=== PATIENT | male | born 1945 | race Caucasian/White ===

== ENCOUNTER 2016-06-28 18:21 | Emergency (ER) | payer OTHER, MEDICARE ==
[2016-06-28 18:31] VITALS: RESP 16; TEMP 97.5
--- NOTE | 2016-06-28 18:35 | EDPHY ---
H & P Stated Complaint: laceration to L hand with saw - Personal History Current Tetanus/Diphtheria Vaccine: Unsure Current Tetanus Diphtheria and Acellular Pertussis (TDAP): Unsure Tetanus Vaccine Date: < 10 YEARS - Medical/Surgical History Hx Asthma: No Hx Chronic Respiratory Disease: No Hx Diabetes: Yes Hx Cardiac Disease: Yes Hx Renal Disease: No Hx Cirrhosis: No Hx Alcoholism: No Hx HIV/AIDS: No Hx Splenectomy or Spleen Trauma: No Other PMH: cabg [id number], sss & 12, stents 12, DM2, htn, hyperlipidemia, former smoker, pace maker, afib - Social History Smoking Status: Former smoker Time Seen by Provider: 06/28/16 18:34 Constitutional: Initial Vital Signs Temperature (C) 36.4 C 06/28/16 18:22 Heart Rate 71 06/28/16 18:22 Respiratory Rate 16 06/28/16 18:22 Blood Pressure 123/68 H 06/28/16 18:22 O2 Sat (%) 98 06/28/16 18:22 O2 Delivery Mode Room Air Allergies/Adverse Reactions: Penicillins Allergy (Unknown, Verified 11/02/09 09:37) Other-Enter Comments Home Medications: Medication Instructions Recorded Carvedilol [Coreg (*)] 6.25 mg PO BIDMEAL 06/11/14 Fluticasone Nasal [Flonase Nasal 1 sprays NASAL DAILY PRN 06/11/14 [place]] Venlafaxine Xr [Effexor Xr 75MG 75 mg PO DAILY 06/11/14 (*)] Clopidogrel Bisulfate [Plavix (*)] 75 mg PO HS #60 tab 06/13/14 Aspirin EC [Aspirin EC 81 mg (*)] 81 mg PO HS 05/01/15 Lisinopril [Zestril 2.5 mg (*)] 2.5 mg PO HS 05/01/15 Atorvastatin Calcium [Lipitor 80 80 mg PO HS 06/18/15 mg] Furosemide [Lasix 80 MG (*)] 80 mg PO DAILY 06/18/15 Magnesium Chloride [Slow-Mag] 71.5 mg PO DAILY 06/18/15 Spironolactone [Aldactone 25 MG 12.5 mg PO DAILY 06/18/15 (*)] Apixaban [Eliquis] 2.5 mg PO BID #60 tablet 06/19/15 Cephalexin [Keflex (RX)] 500 mg PO TID #20 cap 06/28/16 Medical Decision Making Procedures: Procedure: Laceration repair. Verbal consent was obtained from the patient. The 7 cm laceration on the palm of the left hand was anesthetized in the usual fashion. The wound was irrigated , draped and explored to its base with a gloved finger. There were no deep structures involved. No tendon injury was identified. The wound was repaired with 5 0 Prolene, 21 simple interrupted sutures. The wound repair was simple. The procedure was performed by myself. Procedure: Splint placement. A Velcro thumb spica splint was applied. After application of the splint I returned and re-examined the patient. The splint was adequately immobilizing the joint and distal to the splint the patient's circulation and sensation was intact. (Efraín Tejada) ED Course/Re-evaluation: CHIEF COMPLAINT: Hand laceration HISTORY OF PRESENT ILLNESS: The patient is an anticoagulated 71 y/o male arriving with his daughter complaining of a laceration to his left palm. He was sawing a piece of clean aluminium metal when the metal slipped and cut his left palm. He had immediate pain and bleeding following the injury, though the bleeding is controlled well with direct pressure and his pain is minor in severity. He denies other injuries. He does not endorse weakness or paresthesias in his hand or fingers. REVIEW OF SYSTEMS: A 10 point review of systems was performed and is negative with the exception of the elements mentioned in the history of present illness. PHYSICAL EXAM: General Appearance: Alert, well hydrated, appropriate, and non-toxic appearing. Cardiovascular: Intact left radial pulses. Good capillary refill in left hand and fingers. Musculoskeletal: Normal active ROM of all extremities, atraumatic. Neurological: Alert, appropriate, and interactive. Motor and sensation intact with good 2-point discrimination. Skin: No rashes, good turgor, no nodules on palpation. 7cm C-shaped laceration across thenar eminence along thenar crease of left palm with minor bleeding. No other visible trauma. PAST MEDICAL HISTORY: Unknown last tetanus vaccination. On Eliquis, Plavix, and aspirin for atrial fibrillation; CAD; CABG; cardiac stents. 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 DIAGNOSTICS/PROCEDURES/CRITICAL CARE TIME: Laceration repaired by RAJWINDER Tejada. DIFFERENTIAL DIAGNOSIS: The differential diagnosis for the patient's trauma included but was not limited to laceration, muscle and tendon injury, nerve trauma. MEDICAL DECISION MAKING: This is an anticoagulated 71 y/o male presenting with a large C-shaped laceration to his left palm after a piece of aluminum slipped and cut his hand. He remains neurovascularly intact surrounding and distal to the injury. His bleeding is adequately controlled with pressure. He has no other injuries. Plan for laceration repair, tetanus vaccination administration, and prophylactic Keflex. He agrees with treatment plan. (Paolo Navarro) - Data Points Medications Given: Discontinued Medications Cephalexin (Keflex 500 Mg Prepack#4) 1 btl TAKEHOME EDNOW ONE PRN Reason: Protocol Stop: 06/28/16 20:14 Last Admin: 06/28/16 21:10 Dose: 1 btl Cephalexin HCl (Keflex) 500 mg PO EDNOW ONE PRN Reason: Protocol Stop: 06/28/16 18:47 Last Admin: 06/28/16 19:23 Dose: 500 mg Diphtheria/Tetanus/Acell Pertussis (Boostrix) 0.5 ml IM .ONCE ONE Stop: 06/28/16 18:47 Last Admin: 06/28/16 19:24 Dose: 0.5 ml Departure - Departure Disposition: Home, Routine, Self-Care Clinical Impression: Laceration of hand, left Qualifiers: Encounter type: initial encounter Qualified Code(s): S61.412A - Laceration without foreign body of left hand, initial encounter Condition: Good Instructions: Cephalexin (By mouth), Laceration (ED), Finger Laceration (ED) Additional Instructions: 1. Take Keflex as prescribed. Be sure to complete the entire prescription. 2. Return in 10 days for suture removal. 3. Return earlier to the ED if you experience severe pain, weakness or numbness in your fingers, a dramatic increase in redness or swelling, or if you develop pus or fever. Referrals: Annette Byers MD [Medical Doctor] - As per Instructions Prescriptions: Cephalexin [Keflex (RX)] 500 mg PO TID #20 cap Report Scribed for: Paolo Navarro Report Scribed by: Francoise Tyson Date of Report: 06/28/16 Time of Report: 18:50
[2016-06-28] MEDS ORDERED: CEPHALEXIN 500 MG CAP PO ONE (18:46)
[2016-06-28] MEDS ORDERED: TDAP ADULT 0.5 ML INJ (BOOSTRIX) IM ONE (18:46)
[2016-06-28] MEDS ORDERED: CEPHALEXIN 500MG PREPACK#4 BTL TAKEHOME ONE (20:13)
[2016-06-28 21:24] VITALS: BP 113/67; PULSE 77; O2SAT 96
== END 2016-06-28 21:21 | disposition home or self-care (01) ==
PROC: 0HQGXZZ Repair Left Hand Skin, External Approach (ICD-10-PCS; principal; 2016-06-28)
DX: S61.412A Laceration without foreign body of left hand, initial encounter (principal); E11.9 Type 2 diabetes mellitus without complications; I10 Essential (primary) hypertension; I25.810 Atherosclerosis of coronary artery bypass graft(s) without angina pectoris; Z95.5 Presence of coronary angioplasty implant and graft; Z79.82 Long term (current) use of aspirin; Z79.01 Long term (current) use of anticoagulants; Z23 Encounter for immunization; W45.8XXA Other foreign body or object entering through skin, initial encounter; Y99.8 Other external cause status; Y93.89 Activity, other specified
CPT/HCPCS: 12002; 90471; 90715; 99283; L3807

== ENCOUNTER 2016-07-02 15:26 | Observation (INO) | payer OTHER, MEDICARE ==
--- NOTE | 2016-07-02 16:07 | EDPHY ---
H & P Time Seen by Provider: 07/02/16 15:42 HPI/ROS: CHIEF COMPLAINT: Left hand wound, subsequent visit HISTORY OF PRESENT ILLNESS: This patient is a 71 year old male who presents to the Emergency Department for a subsequent check of left hand wound. He was seen in the ED on 06/28 for a laceration to his left hand obtained when using a table saw in attempt to separate two sheets of metal, lacerating the palm and requiring 21 sutures for repair. He was placed on Keflex which he has been compliant with. Today, he reports increased swelling and redness to the wound site over the past two days. He notes mild tenderness (severity 1/10) to the site of the injury. He also complains of increased lethargy since 700 today. Denies fever, chills, or additional complaints. He has an extensive cardiac history and take Eliquis and Plavix. Medical history also includes type 2 diabetes (Metformin). Tetanus up to date. REVIEW OF SYSTEMS: Constitutional: +lethargy, no fever, no chills Eyes: No visual changes ENT: No sore throat Respiratory: No cough, no shortness of breath Cardiac: No chest pain Gastrointestinal: No nausea, no vomiting, no abdominal pain Genitourinary: No hematuria, no dysuria Musculoskeletal: +left hand laceration, +left hand swelling, no leg pain or swelling Skin: No rash Neurological: No headache, no numbness, no weakness Psychiatric: No depression Past Medical/Surgical History: Coronary artery disease with stenting and CABG, atrial fibrillation, pacemaker, cardiac ablation (Plavix, Eliquis). Followed by Dr. Elliott, cardiology. Type II diabetes (Metformin). Social History: . Lives in [place]. Smoking Status: Former smoker Physical Exam: General Appearance: Alert, no distress Eyes: Pupils equal and round, no conjunctival pallor or injection ENT, Mouth: Mucous membranes moist Neck: Normal inspection Respiratory: Lungs are clear to auscultation Cardiovascular: Regular rate and rhythm Gastrointestinal: Abdomen is soft and non- tender Neurological: A&O, nonfocal, normal gait Skin: Warm and dry, no rash Extremities: Left hand: 8cm sutured flap-like laceration over the thenar eminence; flap portion is erythematous, warm, and tender; surrounding ecchymosis of the hand and distal forearm. Radial pulse 2+, capillary refill is brisk. Psychiatric: Mood and affect normal Constitutional: Initial Vital Signs Temperature (C) 36.6 C 07/02/16 15:31 Heart Rate 78 07/02/16 15:31 Respiratory Rate 19 07/02/16 15:31 Blood Pressure 117/68 07/02/16 15:31 O2 Sat (%) 96 07/02/16 15:31 O2 Delivery Mode Room Air Allergies/Adverse Reactions: Penicillins Allergy (Unknown, Verified 07/02/16 15:31) Other-Enter Comments Home Medications: Medication Instructions Recorded Carvedilol [Coreg (*)] 6.25 mg PO BIDMEAL 06/11/14 Fluticasone Nasal [Flonase Nasal 1 sprays NASAL DAILY PRN 06/11/14 [place]] Venlafaxine Xr [Effexor Xr 75MG 75 mg PO DAILY@06/11/14 (*)] Aspirin EC [Aspirin EC 81 mg (*)] 81 mg PO DAILY@05/01/15 Lisinopril [Zestril 2.5 mg (*)] 2.5 mg PO DAILY@05/01/15 Atorvastatin Calcium [Lipitor 80 80 mg PO DAILY@06/18/15 mg] Furosemide [Lasix 80 MG (*)] 80 mg PO DAILY@06/18/15 Spironolactone [Aldactone 25 MG 12.5 mg PO DAILY@06/18/15 (*)] Apixaban [Eliquis] 2.5 mg PO BID@07/02/16 Clopidogrel Bisulfate [Plavix (*)] 75 mg PO DAILY@07/02/16 Herbals/Supplements -Info Only 1 ea PO DAILY@07/02/16 Omeprazole 20 mg PO DAILY@07/02/16 metFORMIN HCL [Glucophage 500 mg 1,000 mg PO BIDMEAL 07/02/16 (*)] Acetaminophen [Tylenol 325mg (*)] 650 mg PO Q4HRS PRN #0 tab 07/03/16 Doxycycline Hyclate [Vibramycin 100 mg PO BID #12 cap 07/03/16 100 MG (*)] Medical Decision Making - Diagnostics Imaging: Study: X-ray of the left hand Indication: Prior trauma, wound infection Results: X-ray of the left hand was obtained. The results of the study are: 1. Soft tissue swelling. No evidence of osteomyelitis. 2. Tiny foreign body in distal fourth finger. The study was read by the radiologist, Dr. Juliocesar Hampton. I viewed the images myself on the PACS system. Study: Limited ultrasound of the left hand Indication: Wound fluctuance Results: Ultrasound of the left hand was obtained. The results of the study are : two 1cm areas of fluid collection of undetermined type. The study was read by the radiologist, Dr. Darius Reeder. I viewed the images myself on the PACS system. ED Course/Re-evaluation: IV established. Patient started on IV vancomycin. Plan for x-ray of the left hand and labs, including sepsis screen. Does not meet SIRS criteria. Lactate elevated, will give 1 liter NS. Will consult with hand surgery and plan for admission. 1616: Consultation with Dr. Kimmie Lomas, hospitalist, who accepts admission to med/surg. 1729: Ultrasound results reported to me by Dr. Darius Reeder, radiology. 181: Dr. Mumtaz Farrell, hand surgeon, consulting at bedside. - Data Points Medications Given: Discontinued Medications Apixaban (Eliquis) 2.5 mg PO BID@12, [facility] Stop: 12/30/16 00:00 Last Admin: 07/03/16 12:09 Dose: 2.5 mg Aspirin Buffered (Aspirin Ec) 81 mg PO DAILY@00 [facility] Stop: 12/30/16 00:00 Last Admin: 07/03/16 00:46 Dose: 81 mg Atorvastatin Calcium (Lipitor) 80 mg PO DAILY@0000 [facility] Stop: 12/30/16 00:00 Last Admin: 07/03/16 00:47 Dose: 80 mg Carvedilol (Coreg) 6.25 mg PO BID@0000,1200 [facility] Stop: 12/29/16 00:00 Last Admin: 07/02/16 23:07 Dose: Not Given Carvedilol (Coreg) 6.25 mg PO BID@0000,1200 [facility] Stop: 12/30/16 00:00 Last Admin: 07/03/16 12:10 Dose: 6.25 mg Clopidogrel Bisulfate (Plavix) 75 mg PO DAILY@00 [facility] Stop: 12/30/16 00:00 Last Admin: 07/03/16 00:47 Dose: 75 mg Furosemide (Lasix) 80 mg PO DAILY@1200 [facility] Stop: 12/30/16 11:59 Last Admin: 07/03/16 12:10 Dose: 80 mg Vancomycin/Sodium Chloride (Vancomycin 1 Gm (Premix)) 250 mls @ 250 mls/hr IV EDNOW ONE PRN Reason: Protocol Stop: 07/02/16 17:11 Last Admin: 07/02/16 16:55 Dose: 250 mls Sodium Chloride (Ns) 1,000 mls @ 0 mls/hr IV ONCE ONE PRN Reason: [place] Stop: 07/02/16 16:45 Last Admin: 07/02/16 16:56 Dose: 1,000 mls Vancomycin HCl 1.25 gm/ (Dextrose) 250 mls @ 166.667 mls/hr IV Q24H [facility] Stop: 08/02/16 14:59 Last Admin: 07/03/16 14:31 Dose: 250 mls Insulin Human Lispro (Humalog Lispro) 0 unit SC TIDMEAL ERICA PRN Reason: Protocol Stop: 12/30/16 07:59 Last Admin: 07/03/16 12:14 Dose: Not Given Lisinopril (Zestril) 2.5 mg PO DAILY@0000 [facility] Stop: 12/30/16 00:00 Last Admin: 07/03/16 00:47 Dose: 2.5 mg Metformin HCl (Glucophage) 1,000 mg PO BID@0000,1200 [facility] Stop: 12/30/16 00:00 Last Admin: 07/03/16 12:10 Dose: 1,000 mg Pantoprazole Sodium (Protonix) 40 mg PO DAILY@0000 [facility] Stop: 12/30/16 00:00 Last Admin: 07/03/16 00:48 Dose: 40 mg Spironolactone (Aldactone) 12.5 mg PO DAILY@12 [facility] Stop: 12/30/16 11:59 Last Admin: 07/03/16 12:10 Dose: 12.5 mg Venlafaxine HCl (Effexor Xr) 75 mg PO DAILY@12 [facility] Stop: 12/30/16 11:59 Last Admin: 07/03/16 12:09 Dose: 75 mg Departure - Departure Disposition: [facility] Clinical Impression: Cellulitis of left hand Laceration of left hand Qualifiers: Encounter type: subsequent encounter Qualified Code(s): S61.412D - Laceration without foreign body of left hand, subsequent encounter Condition: Good Report Scribed for: Mariajose Freitas Report Scribed by: Leeann Corea Date of Report: 07/02/16 Time of Report: 15:59 Physician Review and Approval Statement: 07/02/16 15:59 Portions of this note were transcribed by a medical billing and coding specialist. I personally performed a history, physical exam, medical decision making, and confirmed accuracy of information the transcribed note.
[2016-07-02] MEDS ORDERED: VANCOMYCIN HCL/NORMAL SALINE 250 ML IV ONE (16:12)
[2016-07-02 16:44] LABS: % IMMATURE GRANULYOCYTES 0.4 % (0.0-1.1); ABSOLUTE IMMATURE GRANULOCYTES 0.03 10^3/uL (0.00-0.10); ADD DIFF? NO; ADD MORPH? NO; ADD SCAN? NO; ATYPICAL LYMPHOCYTE FLAG 10 (0-99); FRAGMENT RBC FLAG 0 (0-99); HEMATOCRIT 36.8 % (40.0-51.0); HEMOGLOBIN 12.6 g/dL (13.7-17.5); LEFT SHIFT FLG 0 (0-99); LIPEMIA HEMOLYSIS FLAG 90 (0-99); MEAN CELL HEMOGLOBIN 30.8 pg (27.9-34.1); MEAN CELL HEMOGLOBIN CONCENTR. 34.2 g/dL (32.4-36.7); MEAN PLATELET VOLUME 9.9 fL (8.7-11.7); PLATELET CLUMPS FLAG 0 (0-99); PLATELET COUNT 214 10^3/uL (150-400); RED BLOOD CELL COUNT 4.09 10^6/uL (4.40-6.38); RED CELL DISTRIBUTION WIDTH 12.9 % (11.5-15.2)
[2016-07-02] MEDS ORDERED: NS 1,000 ML IV ONE (16:44)
[2016-07-02 16:52] LABS: ANION GAP 14 mEq/L (8-16); CALCIUM 9.4 mg/dL (8.5-10.4); CARBON DIOXIDE 22 mEq/l (22-31); CHLORIDE 100 mEq/L (97-110); CREATININE 1.6 mg/dL (0.7-1.3); GLOMERULAR FILTRATION RATE 43; GLUCOSE 176 mg/dL (70-100); POTASSIUM 4.4 mEq/L (3.5-5.2); SODIUM 136 mEq/L (134-144)
[2016-07-02 17:36] LABS: LACGHOST ORDER
--- NOTE | 2016-07-02 19:15 | GCON ---
[f rep st] CONSULTATION ORTHOPEDIC CONSULTATION DATE OF CONSULTATION: 07/02/2016 DIAGNOSIS: Left hand laceration, status post closure. Rule out infection (cellulitis). HISTORY OF PRESENT ILLNESS: The patient is a 71-year-old gentleman who presented to the emergency r oom with a left hand laceration on 06/28/2016. At that point in time, he underwent a debridement an d closure. He was placed on Keflex. He has had increased swelling and redness around the wound ove r the last couple days. There has been some mild increased pain. The situation is complicated by t he fact that he is on Eliquis and Plavix. His tetanus is up to date. PAST MEDICAL HISTORY: 1. Coronary artery disease, status post CABG and stent placement x12. History of atrial fibrillati on, treated with a pacemaker. History of cardiac ablation. He is currently taking Plavix and Eliqu is and followed by Dr. Elliott. 2. Diabetes mellitus. Currently taking metformin. REVIEW OF SYSTEMS: Afebrile. No significant other sources of infection. Does feel lethargic. No history of respiratory symptomatology. Absent cough. No shortness of breath. No history of genito urinary symptomatology, i.e., no hematuria or dysuria. SOCIAL HISTORY: . Lives in [place]. Daughter works at the hospital. Smoking status: Joao t but previous smoker. PHYSICAL EXAMINATION: VITAL SIGNS: Alert and oriented x3. GENERAL: Cooperative. HEENT: Within normal limits. CHEST: Clear. CARDIAC: Regular rate and rhythm. Pulses 2+, radial and ulnar. Go od capillary flow, all fingertips. He has a fairly large right-angle laceration at the base of the thenar eminence. There is significant redness on the distal aspect of the flap but no induration an d no purulent drainage. He is able to flex, extend the thumb flexor tendon and the flexor tendons t o the second finger. There is normal sensation to all fingertips and good capillary flow to all fin gertips. ASSESSMENT: Cellulitis of the hand, status post previous closure of a hand laceration. PLAN: At this point in time, I do not feel there is significant purulence. We are going to observe this. He is placed on IV antibiotics, and we will see if this gradually resolves. An incidental f inding on his hand x-ray was a foreign body in the 4th finger that has evidently been present for a long time and is asymptomatic. TREATMENT: The patient is placed on IV vancomycin. He will be splinted. We will follow up to make sure the cellulitis is not progressing to a purulent abscess. /[id number]/MODL
[2016-07-02] MEDS ORDERED: ONDANSETRON 4 MG/2 ML VIAL IVP PRN (19:20)
[2016-07-02] MEDS ORDERED: ONDANSETRON DISINTEGRATING 4 MG TAB PO PRN (19:20)
[2016-07-02] MEDS ORDERED: ACETAMINOPHEN 325 MG TAB PO PRN (19:20)
[2016-07-02] MEDS ORDERED: oxyCODONE IR 5 MG TAB PO PRN (19:20)
[2016-07-02] MEDS ORDERED: FLUTICASONE NASAL 120 SPRAYS/16 GM MDI EACHNARE PRN (19:23)
[2016-07-02] MEDS ORDERED: D50W 25 GM/50 ML SYR IVP PRN (20:01)
--- NOTE | 2016-07-02 20:36 | GHP ---
[f rep st] HISTORY AND PHYSICAL DATE OF ADMISSION: 07/02/2016 CHIEF COMPLAINT: Swelling and pain in a recently stitched hand. HISTORY: This is a 71-year-old man with a past medical history that includes diabetes, well control led, as well as coronary artery disease and atrial fibrillation, on chronic anticoagulation, who pre sents with worsening redness and swelling in his palm following recently getting stitches here in [facility] emergency department following an injury with a saw. Patient underwent ER suturing and washout on the and notes that since then he has had some increased erythema surrounding the suture site. He denies any drainage. He denies any fevers or chills. He notes the pain has not increased. He continues to have sensation and mobility in his hand, though limited somewhat by the swelling. PAST MEDICAL HISTORY: Includes: 1. Well-controlled diabetes. 2. Coronary artery disease, status post CABG and PCI of multiple stents. 3. Paroxysmal atrial fibrillation. 4. Paroxysmal atrial flutter, status post ablation. 5. Chronic systolic heart failure with a baseline ejection fraction of 25-30%. 6. Chronic kidney disease. 7. TEJINDER. PAST SURGICAL HISTORY: Includes: 1. CABG. 2. PCI. 3. Bi-V ICD. SOCIAL HISTORY: Patient is . He is a prior smoker. Denies significant alcohol use. He has a daughter who works as a scribe in the ER. FAMILY HISTORY: Reviewed and unremarkable. REVIEW OF SYSTEMS: 10-point review of systems obtained and negative, except as per HPI. MEDICATIONS: Include: 1. Metformin. 2. Venlafaxine. 3. Spironolactone. 4. Omeprazole. 5. Lisinopril. 6. Lasix. 7. Fluticasone. 8. Clopidogrel. 9. Keflex, for which he has been on for his wound. 10. Carvedilol. 11. Atorvastatin. 12. Aspirin. 13. Apixaban. ALLERGIES: Penicillin. PHYSICAL EXAMINATION: VITAL SIGNS: BP 148/90, heart rate 79, respiratory rate 18, O2 sats 95% on r oom air. Temperature is 36.6. GENERAL APPEARANCE: Well-developed/well-nourished man. He is awake , alert. He is in no acute distress. EYES: Anicteric. HEENT: Oropharynx clear. CARDIOVASCULAR: RRR. No MRG. PULMONARY: CTA bilaterally. Normal work of breathing. ABDOMEN: Soft, nontender. Positive bowel sounds. EXTREMITIES: No clubbing, cyanosis, or edema in the lower extremities. H is left hand does have some scattered ecchymoses, both on the palmar and dorsal surface, especially near the knuckles with suturing over his thenar prominence that is clean and dry, although there is some surrounding erythema without discharge, also surrounding ecchymoses. NEUROLOGIC/PSYCHIATRIC: Oriented, appropriate, pleasant. CLINICAL DATA: Labs reviewed. Significant for white blood cell count of 8.3. Chemistry is notable for a BUN of 35, creatinine of 1.6, glucose of 176. Most recent hemoglobin A1c was 6.4. IMAGING: Hand x-ray, I personally reviewed and interpreted, shows soft tissue swelling without evid ence of osteomyelitis. There is a tiny foreign body in his distal 4th finger, uncertain etiology. ASSESSMENT/PLAN: A 71-year-old man with past medical history that includes diabetes, as well as atr ial fibrillation, on chronic anticoagulation, presenting with worsening erythema and swelling, statu s post hand laceration and suturing, concerning for cellulitis. 1. Cellulitis without significant purulence and no real systemic symptoms. Dr. Farrell, of orthopedi , has been consulted, and does not feel it needs any sort of further imaging or incision and drain age. He has been started on IV vancomycin and placed in a splint. ID will be consulted in the morn ing. Some of this is certainly likely due to ecchymoses and hematoma while patient is on anticoagul ation. 2. Atrial fibrillation: Will be continued on anticoagulation. On exam, he does appear to be in si nus rhythm. 3. Chronic systolic heart failure: Patient appears well compensated at this point. He will be con tinued on his home medications. 4. Coronary artery disease, without any complaints of chest pain or other issues to suggest acute c oronary syndrome. He is followed by Dr. Elliott. 5. Chronic kidney disease: This does appear to be at baseline with a creatinine of 1.6, where he h as generally been running around 1.7-2.0. We will continue to monitor, especially while on vancomyc in. 6. Diabetes: Blood sugar mildly elevated, though he does have chronically good control with a hemo globin A1c most recently of 6.4. We will start a sliding scale, in addition to his metformin for th e time being. DISPOSITION: Observation status. Suspect he will need less than a 48-hour stay for evaluation and management of above. The patient is new to my care. Old records reviewed, summarized as per HPI and Past Medical History . Care plan reviewed with the ER physician, including plans for antibiotic therapy overnight. /[id number]/MODL
[2016-07-02 22:44] VITALS: RESP 16
[2016-07-02] MEDS: CARVEDILOL 6.25 MG TAB PO SCH (23:07)
[2016-07-03] MEDS ORDERED: ASPIRIN EC 81 MG TAB PO SCH
[2016-07-03] MEDS ORDERED: ATORVASTATIN CALCIUM 40 MG TAB PO SCH
[2016-07-03] MEDS ORDERED: CLOPIDOGREL BISULFATE 75 MG TAB PO SCH
[2016-07-03] MEDS ORDERED: LISINOPRIL 5 MG TAB PO SCH
[2016-07-03] MEDS ORDERED: PANTOPRAZOLE SODIUM 40 MG TAB PO SCH
[2016-07-03] MEDS: metFORMIN HCL 500 MG TAB PO SCH ×2 (00:46→12:10)
[2016-07-03] MEDS: APIXABAN 2.5 MG TAB PO SCH ×2 (00:49→12:09)
[2016-07-03] MEDS: CARVEDILOL 6.25 MG TAB PO SCH ×2 (00:49→12:10)
[2016-07-03 07:45] VITALS: BP 113/63; PULSE 83; TEMP 98; O2SAT 94
[2016-07-03] MEDS: INSULIN LISPRO 100 UNIT/ML SC SCH ×2 (08:34→12:14)
[2016-07-03] MEDS ORDERED: ENOXAPARIN 40 MG/0.4 ML SYR SC SCH (09:00)
[2016-07-03] MEDS ORDERED: SPIRONOLACTONE 25 MG TAB PO SCH (12:00)
[2016-07-03] MEDS ORDERED: VENLAFAXINE XR 75 MG CAP PO SCH (12:00)
[2016-07-03] MEDS ORDERED: FUROSEMIDE 40 MG TAB PO SCH (12:00)
--- NOTE | 2016-07-03 14:13 | GDS ---
[f rep st] DISCHARGE SUMMARY DISCHARGE DIAGNOSES: 1. Cellulitis of the left hand. 2. History of atrial fibrillation. 3. History of chronic systolic heart failure. 4. History of coronary artery disease. 5. Chronic kidney disease. 6. Well-controlled diabetes. CONSULTATIONS: 1. Dr. Crane of Infectious Disease. 2. Dr. Farrell of Orthopedics. STUDIES AND PROCEDURES DONE: Hand x-ray. PHYSICAL EXAM: GENERAL: The patient is alert. VITAL SIGNS: Afebrile at 36.7, pulse is 83, respir atory rate 16, blood pressure is 113/63, he is saturating 94% on room air. I have seen and evaluate d the patient on the day of discharge. HOSPITAL COURSE: The patient is a 71-year-old male, presented to the emergency room with complaints of hand swelling and pain. He was evaluated and diagnosed with: 1. Left hand cellulitis. The patient has recently had a significantly severe incision of the left hand that was sutured on 06/28/2016. He was treated with IV vancomycin during this hospitalization. A consultation from Dr. Farrell of Orthopedics, as well as Dr. Crane of Infectious Disease were obt ained. The patient's cellulitis is responding well to antibiotic therapy. He will continue on oral doxycycline 100 mg p.o. twice daily for a total of 6 days in the outpatient setting. A prescriptio n has been provided for the patient. He will initiate this on 07/04/2016. Followup for this hand a nd cellulitis condition will be done with Dr. Farrell of Orthopedics, as well as the patient's primary care physician. 2. History of atrial fibrillation. Will continue his previously prescribed anticoagulation, and he is in sinus rhythm upon my exam. 3. Chronic systolic heart failure. There is no acute process at this time, and his home medication s have been continued. 4. History of coronary artery disease. The patient does not have any complaints of chest pain. He will follow up with his primary set o type operator outside the hospital as needed. 5. Chronic kidney disease. The patient is at baseline with regard to this condition with no furthe r intervention warranted. 6. Diabetes. He will continue his previously prescribed home medications and regimen. His conditi on appears to be well controlled. DISPOSITION: The patient will be discharged home independently. There are no pending studies. [facility] outpatient includes Dr. Farrell of Orthopedics, as well as the patient's primary care physician, Dr. Bala Hung. I reviewed the patient's care with Dr. [place] Crane who is in agreement with this p eleazar, and discharge antibiotics have been provided for the patient at the time of disposition. DISCHARGE MEDICATIONS: I have not changed the patient's previously prescribed home medications with the exception of the addition of doxycycline 100 mg p.o. twice daily for a total of 6 days. /[id number]/MODL
--- NOTE | 2016-07-03 14:31 | SOAPPROG ---
SOAP Progress Note Assessment/Plan: Assessment/Plan: - Keep sutures clean and dry, covered for showers and no soaking - Continue pain management - Continue to work on passive and active ROM of the fingers - Follow-up with Dr. Farrell in 10 days for re-check and suture removal - Discharge today 07/03/16 14:32 Subjective: Pt states he seems to be doing better today. No increases in pain, and the area of erythema surrounding the laceration seems decreased since yesterday. Pt states he has difficulty flexing his fingers secondary to swelling. Objective: VSS, afebrile, sitting up in bed Vital Signs Temp Pulse Resp BP Pulse Ox 36.7 C 83 16 113/63 94 07/03/16 07:43 07/03/16 07:43 07/03/16 07:43 07/03/16 07:43 07/03/16 07:43 Laboratory Results 07/02/16 16:30 07/02/16 16:30 07/02/16 07/03/16 07/04/16 05:59 05:59 05:59 Intake Total 1650 Output Total 1 Balance 1649 Physical Exam - Physical Exam General Appearance: alert, no apparent distress Skin: warm/dry, other (small area of erythema near laceration site without any drainage or calor) Extremities: non-tender, normal capillary refill, swelling (increased edema surrounding the laceration on the left thenar and edema in the phalanges), other (sutures c/d/i, decreased flexion of phalanges secondary to edema ), No calf tenderness, No Mario's sign Neuro/Psych: no motor/sensory deficits, alert, normal mood/affect, oriented x 3 ICD10 Worksheet Patient Problems: Problems Problem Status Onset Cellulitis of left hand Acute Laceration of left hand Acute Atrial fibrillation Acute Chronic Disease Mgmt/Transitional Care Acute Coronary artery disease Acute Diabetes mellitus Acute ICD (implantable cardioverter-defibrillator) in place Acute Renal failure Acute S/P coronary artery stent placement Acute Status post coronary artery bypass graft Acute Systolic and diastolic CHF, acute on chronic Acute
[2016-07-03] MEDS ORDERED: VANCOMYCIN 1.25 GM in D5W 250 ML IV SCH (15:00)
--- NOTE | 2016-07-03 16:49 | GCON ---
[f rep st] CONSULTATION DATE OF CONSULTATION: 07/03/2016 REASON FOR CONSULTATION: Cellulitis of the hand. HISTORY OF PRESENT ILLNESS: 71-year-old male with past medical history of well controlled diabetes, coronary artery disease, atrial fibrillation on chronic anticoagulation whose problems date back to 06/28/2016 when he was doing a project around the house in which he was trying to cut large pieces of metal with a table saw, and he lost control and lacerated the palmar side of his left hand. Cristina ent presented to the emergency room and had 21 stitches to repair the laceration on the palmar surfa ce of his hand. Patient was given prophylactic antibiotics, i.e. Keflex which he was taking 3 times daily. He noticed progressive increase in redness starting on 06/02. It progressively worsened. His daugh sergio works in the emergency room, and they contacted a friend in the ER who recommended presentation for further evaluation. In the emergency room, patient was found to have some redness on the central surface of the lacerati on, was afebrile, and had a normal white count. Patient was initiated on IV antibiotics after blood cultures were collected. He was started on IV vancomycin and elevation was recommended. Today, robert powers reports significant recession of the redness although he is still unsure whether he thinks jus t due to inflammation related to the injury itself. He did describe malaise yesterday. That is imp roved today. PAST MEDICAL HISTORY: Well-controlled diabetes, coronary artery disease, status post CABG and multi ple stents, paroxysmal atrial fibrillation and A flutter, status post ablation, CHF with ejection fr action of approximately 30%, chronic renal insufficiency, obstructive sleep apnea. PAST SURGICAL HISTORY: CABG, PCI, and biventricular ICD. SOCIAL HISTORY: Patient is , prior smoker. No alcohol use. Daughter works as a scribe in [employer] emergency room. FAMILY HISTORY: Reviewed and noncontributory. MEDICATIONS: 1. Tylenol as needed. 2. Eliquis 2.5 twice daily. 3. Aspirin 81 mg daily. 4. Lipitor 80 mg daily. 5. Coreg 6.25 twice daily. 6. Plavix 75 mg daily. 7. Lasix 80 mg daily. 8. Insulin as needed. 9. Zestril 2.5 mg daily. 10. Glucophage 1000 mg twice daily. 11. Zofran as needed. 12. Protonix 40 mg daily. 13. Vancomycin 1.25 g IV q.24. ALLERGIES: Allergy to penicillin, does not recall reaction. PHYSICAL EXAMINATION: VITAL SIGNS: Blood pressure 113/63, heart rate 83, respiratory rate 16, satu ration 94% on room air, temperature 36.7. GENERAL: This is a nontoxic-appearing male sitting up in bed with fluent speech, cheerful. HEENT: Moist mucous membranes. No obvious oral abnormalities. CARDIOVASCULAR: Regular rate and rhythm with a 2/6 systolic murmur. CHEST: Clear to auscultation bilaterally. ABDOMEN: Soft, nontender. MUSCULOSKELETAL: Examination of the left hand showed a l arge sutured incision on the left palmar surface with minimal erythema. No purulence at the incision site noted. Range of motion of his fingers was all intact. He had a 2 + bounding radial pulse with good capillary refill. NEUROLOGIC: He is alert and oriented x4 moving all 4 extremities equally. IMAGING: X-ray of the hand was performed that showed some soft tissue swelling without evidence of osteomyelitis. Also a bedside ultrasound was performed in the emergency room that showed a small fl uid collection, about 1 cm. ASSESSMENT/PLAN: 1. 71-year-old male with an extensive laceration of his palmar surface of his hand which developed some increasing erythema that is improved overnight with 2 doses of antibiotics. Clinical course land ggests minimal cellulitis, but it was discussed with patient that reason for development of erythema could be underlying abscess. Discussed coverage of antibiotics based on coverage of Staphylococcus and strep but also did not rule out the possibilities of other gram-negative rods. Reason for Kefl ex failure may have been simply due to drug levels not due to wrong coverage, but unfortunately, lorena shaikh received IV vancomycin overnight with improvement, therefore, unclear what the underlying cause for worsening symptoms. Recommend dose of vancomycin today and initiating doxycycline tomorrow for 6 more days. 2. Patient is to continue elevation. 3. Patient is to contact us if symptoms worsen, develops fever or side effects of doxycycline. 4. Side effects of doxycycline were reviewed including sitting up for at least 1-2 hours after taki ng the medicine, interaction with calcium, and sensitivity. Thank you for this consultation. Patient will contact us an outpatient if needs further recommendat ions. /[id number]/MODL
== END 2016-07-03 17:12 | disposition home or self-care (01) ==
LOC: INTOOBSV 16:16 → F3E 18:29
PROVIDERS: ADMIT Internal Medicine; ATTEND Internal Medicine
DX: L03.115 Cellulitis of right lower limb (principal); E11.22 Type 2 diabetes mellitus with diabetic chronic kidney disease; I25.10 Atherosclerotic heart disease of native coronary artery without angina pectoris; Z95.1 Presence of aortocoronary bypass graft; Z95.5 Presence of coronary angioplasty implant and graft; I48.0 Paroxysmal atrial fibrillation; Z95.0 Presence of cardiac pacemaker; I48.92 Unspecified atrial flutter; Z79.01 Long term (current) use of anticoagulants; Z87.891 Personal history of nicotine dependence; I50.22 Chronic systolic (congestive) heart failure; G47.33 Obstructive sleep apnea (adult) (pediatric)
CPT/HCPCS: 73130; 76882; 96365; 99285; G0378; J3370

== ENCOUNTER → 2016-09-01 | Outpatient (CLI) | payer OTHER, MEDICARE | LOC: BHFA 13:00 | PROVIDERS: ATTEND Internal Medicine Cardiovascular Disease | DX: I48.91 Unspecified atrial fibrillation (principal); I25.5 Ischemic cardiomyopathy; R06.02 Shortness of breath; R07.89 Other chest pain ==

== ENCOUNTER → 2016-09-18 | Outpatient (CLI) | payer OTHER, MEDICARE | LOC: BHFA 13:15 | PROVIDERS: ATTEND Internal Medicine Cardiovascular Disease | DX: I50.9 Heart failure, unspecified (principal); R06.00 Dyspnea, unspecified ==

== ENCOUNTER → 2016-09-21 | Outpatient (CLI) | payer OTHER, MEDICARE | LOC: BHFA 14:00 | PROVIDERS: ATTEND Internal Medicine Cardiovascular Disease | DX: I25.10 Atherosclerotic heart disease of native coronary artery without angina pectoris (principal) | CPT/HCPCS: 78452; 93017; A9500; J2785 ==

== ENCOUNTER → 2016-10-08 | Outpatient (CLI) | payer OTHER, MEDICARE | LOC: BHFA 13:30 | PROVIDERS: ATTEND Internal Medicine Cardiovascular Disease | DX: I48.91 Unspecified atrial fibrillation (principal) ==

== ENCOUNTER 2016-10-30 08:13 | Day surgery (SDC) | payer OTHER, MEDICARE ==
[2016-10-30] MEDS ORDERED: NS 500 ML IV ONE (08:18)
[2016-10-30] MEDS ORDERED: fentaNYL 100 MCG/2 ML INJ IVP ONE (08:18)
[2016-10-30] MEDS ORDERED: MIDAZOLAM 2 MG/2 ML VIAL IVP ONE (08:18)
[2016-10-30] MEDS ORDERED: PROPOFOL 200 MG/20 ML VIAL IVP ONE (08:18)
--- NOTE | 2016-10-30 08:46 | CPEKG ---
Heart Rate: 80 RR Interval: 750 P-R Interval: 183 QRSD Interval: 124 QT Interval: 412 QTC Interval: 476 P Opheim: 0 QRS Opheim: -68 T Wave Opheim: 92 EKG Severity - ABNORMAL ECG - EKG Impression: VENTRICULAR-PACED COMPLEXES Electronically Signed By: Klaus Talamantes 30-Oct-2016 14:16:18
[2016-10-30] MEDS ORDERED: APIXABAN 2.5 MG TAB PO ONE (09:00)
[2016-10-30 09:02] LABS: INR 1.15 (0.83-1.16); PROTIME(PATIENT) 14.6 SEC (12.0-15.0)
[2016-10-30 09:03] LABS: APTT 33.4 SEC (23.0-38.0)
[2016-10-30 09:19] LABS: ANION GAP 13 mEq/L (8-16); CALCIUM 8.9 mg/dL (8.5-10.4); CARBON DIOXIDE 22 mEq/l (22-31); CHLORIDE 105 mEq/L (97-110); CREATININE 1.7 mg/dL (0.7-1.3); GLOMERULAR FILTRATION RATE 40; GLUCOSE 121 mg/dL (70-100); MAGNESIUM 1.7 mg/dL (1.6-2.3); POTASSIUM 4.3 mEq/L (3.5-5.2); SODIUM 140 mEq/L (134-144)
--- NOTE | 2016-10-30 09:37 | PDTEE1 ---
[facility] Cardioversion Procedure Indications: Atrial Fibrillation Consent: Signed and in Chart Anticoagulation: Abhinav Procedural Details: Pads were placed in anterior-posterior position. Synchronized cardioversion attempt #1: 200J Results: Normal sinus rhythm Conclusions: Successful Cardioversion (ICD interogation unremarkable.) Patient Problems: Problems Problem Status Onset Systolic and diastolic CHF, acute on chronic Acute Coronary artery disease Acute Atrial fibrillation Acute ICD (implantable cardioverter-defibrillator) in place Acute S/P coronary artery stent placement Acute Status post coronary artery bypass graft Acute Diabetes mellitus Acute Renal failure Acute Chronic Disease Mgmt/Transitional Care Acute Laceration of left hand Acute Cellulitis of left hand Acute
--- NOTE | 2016-10-30 09:56 | CPEKG ---
Heart Rate: 70 RR Interval: 857 P-R Interval: 164 QRSD Interval: 136 QT Interval: 452 QTC Interval: 488 P Ol[place]: 187 QRS Ol[place]: -75 T Wave Ol[place]: 97 EKG Severity - ABNORMAL ECG - EKG Impression: A-V DUAL-PACED RHYTHM WITH SOME INHIBITION Electronically Signed By: Klaus Talamantes 30-Oct-2016 14:16:24
== END 2016-10-30 11:53 | disposition home or self-care (01) ==
LOC: FCATH 08:13
PROVIDERS: ATTEND Internal Medicine Interventional Cardiology
PROC: 5A2204Z Restoration of Cardiac Rhythm, Single (ICD-10-PCS; principal; 2016-10-30)
PROC: B245ZZ4 Ultrasonography of Left Heart, Transesophageal (ICD-10-PCS; principal; 2016-10-30)
DX: I48.1 Persistent atrial fibrillation (principal); I50.23 Acute on chronic systolic (congestive) heart failure; I25.5 Ischemic cardiomyopathy; I25.10 Atherosclerotic heart disease of native coronary artery without angina pectoris; E11.9 Type 2 diabetes mellitus without complications; I11.0 Hypertensive heart disease with heart failure; E78.5 Hyperlipidemia, unspecified; Z95.1 Presence of aortocoronary bypass graft; Z95.5 Presence of coronary angioplasty implant and graft; Z95.810 Presence of automatic (implantable) cardiac defibrillator
CPT/HCPCS: J2704

== ENCOUNTER → 2016-12-10 | Outpatient (CLI) | payer OTHER, MEDICARE | LOC: BHFA 11:30 | PROVIDERS: ATTEND Internal Medicine Interventional Cardiology | DX: I50.23 Acute on chronic systolic (congestive) heart failure (principal); I25.810 Atherosclerosis of coronary artery bypass graft(s) without angina pectoris; I48.91 Unspecified atrial fibrillation; I25.5 Ischemic cardiomyopathy ==

== ENCOUNTER → 2017-04-28 | Outpatient (CLI) | payer OTHER, MEDICARE | LOC: FIMAGING 15:30 | PROVIDERS: ATTEND Internal Medicine Interventional Cardiology | DX: I48.91 Unspecified atrial fibrillation (principal); Z79.899 Other long term (current) drug therapy ==

== ENCOUNTER → 2018-01-18 | Day surgery (SDC) | payer OTHER, MEDICARE ==
--- NOTE | 2018-01-18 16:08 | EPPROC ---
Electrophysiology Procedure Note: Procedure performed - Cine angiography Indications-the patient has a [facility] riata lead and noise was seen on the V lead Cine angiography was performed in four views targeting the proximal and distal ICD lead coils, no loss of lead integrity is seen. Electricaly the lead is intact as well. No indication for new ICD lead at this time. This was discussed with the patient. Patient Problems: Problems Problem Status Onset Atrial fibrillation Acute Cellulitis of left hand Acute Chronic Disease Mgmt/Transitional Care Acute Coronary artery disease Acute Diabetes mellitus Acute ICD (implantable cardioverter-defibrillator) in place Acute Laceration of left hand Acute Renal failure Acute S/P coronary artery stent placement Acute Status post coronary artery bypass graft Acute Systolic and diastolic CHF, acute on chronic Acute
== END | disposition home or self-care (01) ==
LOC: FCATH 14:01
PROVIDERS: ATTEND Internal Medicine Cardiovascular Disease
PROC: 4B02XTZ Measurement of Cardiac Defibrillator, External Approach (ICD-10-PCS; principal; 2018-01-18)
DX: Z45.02 Encounter for adjustment and management of automatic implantable cardiac defibrillator (principal); E11.9 Type 2 diabetes mellitus without complications; E78.5 Hyperlipidemia, unspecified; I95.9 Hypotension, unspecified

== ENCOUNTER → 2018-07-12 | Outpatient (CLI) | payer OTHER, MEDICARE | LOC: BHFA 14:45 | PROVIDERS: ATTEND Internal Medicine Cardiovascular Disease | DX: I25.10 Atherosclerotic heart disease of native coronary artery without angina pectoris (principal) ==